=== PATIENT | male | born 1965 | race Caucasian/White ===

== ENCOUNTER 2020-05-24 09:19 | Emergency (ER) | payer BC ==
[~2020-05-24] VITALS: Ht 190.5 cm; Wt 86.2 kg
[2020-05-24] MEDS ORDERED: PHENYLEPHRINE 1% (EXTRA STR) NASAL SPRAY NS ONE ×2 (09:40→09:45)
--- NOTE | 2020-05-24 10:02 | NUR ---
Patient discharged to home in stable condition. Written and verbal after care instructions given. Patient verbalizes understanding of instructions. Stressed follow up or return to ER for worsening s/s.nose bleed stopped. Addendum: 05/24/20 at 1002 by DAYDAY extra nose clamp provided.
== END 2020-05-24 10:07 | disposition home or self-care (01) ==
LOC: ER 09:19
DX: R04.0 Epistaxis (principal)
CPT/HCPCS: A4663